=== PATIENT | male | born 1965 | race Asian ===

== ENCOUNTER 2020-05-02 20:43 | Emergency (ER) | payer BC ==
[~2020-05-02] VITALS: Ht 175.3 cm; Wt 84.8 kg
[2020-05-02 21:06] VITALS: BP_SYST 146
[2020-05-02] MEDS ORDERED: LIP40 PO (21:15)
[2020-05-02] MEDS ORDERED: ALPR0.25 PO (21:16)
[2020-05-02] MEDS ORDERED: LISI10TA29 PO (21:16)
--- NOTE | 2020-05-02 21:42 | NUR ---
Pt ambulatory to bed 8 for evaluation
--- NOTE | 2020-05-02 21:52 | NUR ---
ER at bedside examining patient.
--- NOTE | 2020-05-02 21:57 | NUR ---
Patient brought in complaining of sudden onset left sided chest pain radiating to left arm 30 mins prior to arrival. Denies any nausea, vomiting, abdominal pain. Denies any fever or shortness of breath. Hx of HTN and HLD.
[2020-05-02] MEDS ORDERED: ASPIRIN 81 MG TAB.CHEW PO ONE (22:00)
[2020-05-02 22:19] LABS: BASOPHILS % (AUTO) 0.5 % (0.0-2.0); EOSINOPHILS # (AUTO) 0.2 K/uL (0.0-0.4); EOSINOPHILS % (AUTO) 2.5 % (0.0-4.0); HEMATOCRIT 44.5 % (36-54); HEMOGLOBIN 15.1 g/dL (14.0-18.0); LYMPHOCYTES # (AUTO) 1.8 K/uL (1.0-5.5); LYMPHOCYTES % (AUTO) 26.7 % (20.5-51.5); MEAN CORPUSCULAR HEMOGLOBIN 31 pg (27-31); MEAN CORPUSCULAR HGB CONC 34 % (32-36); MEAN CORPUSCULAR VOLUME 91 fL (79.0-98.0); MONOCYTES # (AUTO) 0.5 K/uL (0.0-1.0); MONOCYTES % (AUTO) 7.8 % (1.7-9.3); NEUTROPHILS # (AUTO) 4.1 K/uL (1.8-7.7); NEUTROPHILS % (AUTO) 62.5 % (40.0-70.0); PLATELET COUNT (AUTO) 181 K/uL (130-430); RED BLOOD CELL COUNT(AUTO) 4.91 MIL/uL (4.2-6.2); RED CELL DISTRIBUTION WIDTH 13.8 % (9.0-15.0); WHITE BLOOD COUNT (AUTO) 6.6 K/uL (4.8-10.8)
--- NOTE | 2020-05-02 22:24 | NUR ---
# 20 gauge angiocath placed to LAC. Use of asceptic technique. Opsite placed over site. Blood return noted. Blood for lab drawn from site. Flushed with 10 cc of normal saline. No evidence of infiltration noted. Patient tolerated well.
[2020-05-02 22:39] LABS: CALCIUM 8.7 mg/dL (8.4-11.0); CREATININE 1.1 mg/dL (0.55-1.30); POTASSIUM 3.6 mmol/L (3.5-5.1)
[2020-05-02 22:46] LABS: ALBUMIN 3.7 g/dL (3.4-4.8); TOTAL BILIRUBIN 0.6 mg/dL (0.0-1.0)
--- NOTE | 2020-05-02 23:09 | NUR ---
dr. parsons at bedside discussing results
[2020-05-02 23:12] VITALS: BP_SYST 122
--- NOTE | 2020-05-02 23:12 | NUR ---
Patient given written and verbal discharge instructions and verbalizes understanding. ER MD discussed with patient the results and treatment provided. Patient in stable condition. ID arm band removed. IV catheter removed intact and dressing applied, no active bleeding. No Rx given. Patient educated on pain management and to follow up with PMD. Pain Scale 0/10 Opportunity for questions provided and answered.
== END 2020-05-02 23:12 | disposition home or self-care (01) ==
LOC: SED 20:43
DX: R07.89 Other chest pain (principal); E87.5 Hyperkalemia
CPT/HCPCS: 36415; 71045; 80053; 82550-TC; 83880; 84484; 85025; 93005; 99285